=== PATIENT | male | born 1990 | race African-American/Black ===

== ENCOUNTER 2016-11-30 08:53 | Emergency (ER) | payer SELFPAY ==
[~2016-11-30] VITALS: Ht 182.9 cm; Wt 90.0 kg
[~2016-11-30 08:53] MED LIST: NAPR-576 PO; ULTR50TA PO
[2016-11-30 08:55] VITALS: BP 159/82; PULSE 106; RESP 16; TEMP 98.8; O2SAT 100
[2016-11-30] MEDS ORDERED: IBUPROFEN 800 MG TAB PO ONE (09:30)
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
--- NOTE | 2016-11-30 10:24 | RADRPT ---
EXAM DATE/TIME: 11/30/2016 10:15 [facility] COMPARISON: No previous studies available for comparison. INDICATIONS : Right ankle pain with swelling MEDICAL HISTORY : None. SURGICAL HISTORY : None. ENCOUNTER: Initial ACUITY: 1 day PAIN SCORE: 9/10 LOCATION: Right ankle FINDINGS: There is soft tissue swelling without fracture or dislocation. CONCLUSION: Soft tissue swelling without fracture. Sharad Shah MD FACR on November 30, 2016 at 10:21 Board Certified Radiologist. This report was verified electronically.
--- NOTE | 2016-11-30 10:29 | RADRPT ---
EXAM DATE/TIME: 11/30/2016 10:17 [facility] COMPARISON: No previous studies available for comparison. INDICATIONS : Right foot pain MEDICAL HISTORY : None. SURGICAL HISTORY : None. ENCOUNTER: Initial ACUITY: 1 day PAIN SCORE: 8/10 LOCATION: Right foot FINDINGS: Three view examination of the right foot demonstrates no soft tissue swelling, dislocation, or fractu re. The tarsal bones appear intact. The interphalangeal and metatarsophalangeal joints are intact. The calcaneus is intact. Bony mineralization is normal. CONCLUSION: No acute disease. Issa Myles MD on November 30, 2016 at 10:26 Board Certified Radiologist. This report was verified electronically.
[2016-11-30] MEDS ORDERED: IBUP800T23 PO (10:43)
== END 2016-11-30 11:54 | disposition home or self-care (01) ==
LOC: NETRI 08:53
DX: S90.31XA Contusion of right foot, initial encounter (principal); S93.401A Sprain of unspecified ligament of right ankle, initial encounter; Y93.9 Activity, unspecified; Y92.9 Unspecified place or not applicable; Y99.9 Unspecified external cause status; V86.59XA Driver of other special all-terrain or other off-road motor vehicle injured in nontraffic accident, initial encounter
CPT/HCPCS: 73610; 73630; 99283; L1906

== ENCOUNTER 2018-01-13 12:19 | Emergency (ER) | payer OTHER ==
[~2018-01-13] VITALS: Ht 185.4 cm; Wt 93.0 kg
[~2018-01-13 12:19] MED LIST changes: +IBUP1TAB7 PO; -NAPR-576 PO; -ULTR50TA PO
[2018-01-13 12:20] VITALS: BP 138/86; PULSE 81; TEMP 98.3; O2SAT 98
[2018-01-13] MEDS ORDERED: ACETAMINOPHEN/HYDROcodone 325 MG/5 MG TAB PO ONE (13:15)
[2018-01-13] MEDS ORDERED: CEPH-460 PO (13:18)
--- NOTE | 2018-01-13 13:18 | PD ---
HPI Chief Complaint: Laceration/Skin Injury Time Seen by Provider: 12:28 Travel History International Travel<30 days: No Contact w/Intl Traveler<30days: No Traveled to known affect area: No History of Present Illness HPI 27-year-old male presents emergency department evaluation of a laceration to his left hand after trying to open a package today. Patient states that he was trying to open a package when he was using a sharp knife actually slipped and cut the dorsal aspect of the web between his first and second finger. He denies any numbness tingling. Says that the pain is mild in severity. Nonradiating. Aching. Says his last tetanus vaccination was 1 year ago. He has no other complaints today. PFS Past Medical History Medical History: Denies Significant Hx Arthritis: No Asthma: No Autoimmune Disease: No Anxiety: No Depression: No Heart Rhythm Problems: No Cancer: No Cardiovascular Problems: No High Cholesterol: No Chemotherapy: No Chest Pain: No Congestive Heart Failure: No COPD: No Cerebrovascular Accident: No Diabetes: No Diminished Hearing: No Endocrine: No GERD: No Hiatal Hernia: No Immune Disorder: No Kidney Stones: No Musculoskeletal: No Neurologic: No Psychiatric: No Reproductive: No Respiratory: No Immunizations Current: Yes Migraines: No Radiation Therapy: No Renal Failure: No Seizures: No Sickle Cell Disease: No Sleep Apnea: No Thyroid Disease: No Ulcer: No Tetanus Vaccination: Unknown ?: Not Past Surgical History Surgical History: No Previous Surgery Abdominal Surgery: No AICD: No Arteriovenous Shunt: No Cardiac Surgery: No Ear Surgery: No Endocrine Surgery: No Genitourinary Surgery: No Gynecologic Surgery: No Insulin Pump: No Joint Replacement: No Neurologic Surgery: No Oral Surgery: No Pacemaker: No Thoracic Surgery: No Other Surgery: No Social History Alcohol Use: Yes (OCC) Tobacco Use: No Substance Use: No Allergies-Medications (Allergen,Severity, Reaction): Coded Allergies: No Known Allergies (Unverified Adverse Reaction, Unknown, 01/13/18) Reported Meds & Prescriptions Reported Meds & Active Scripts Active Keflex (Cephalexin) 500 Mg Cap 500 Mg PO Q8H 5 Days Review of Systems Except as stated in HPI: all other systems reviewed are Neg Physical Exam Narrative GENERAL: Well-nourished, well-developed patient. SKIN: Focused skin assessment warm/dry. Left hand dorsal aspect between the thumb and index finger-laceration 1/2 cm, possible superficial muscular involvement HEAD: Normocephalic. EYES: No scleral icterus. No injection or drainage. NECK: Supple, trachea midline. No JVD or lymphadenopathy. CARDIOVASCULAR: Regular rate and rhythm without murmurs, gallops, or rubs. RESPIRATORY: Breath sounds equal bilaterally. No accessory muscle use. GASTROINTESTINAL: Abdomen soft, non-tender, nondistended. MUSCULOSKELETAL: No cyanosis, or edema. Grade 5/5 upper extremities. No neuro deficits BACK: Nontender without obvious deformity. No CVA tenderness. Data Data Last Documented VS Vital Signs Date Time Temp Pulse Resp B/P (MAP) Pulse Ox O2 Delivery O2 Flow Rate FiO2 01/13/18 12:20 98.3 81 138/86 (103) 98 Orders Orders Acetamin-Hydrocod 325-5 Mg ([facility] 5-325 (01/13/18 13:15) Wound Care (01/13/18 13:14) Ed Discharge Order (01/13/18 13:20) MDM Medical Decision Making Medical Screen Exam Complete: Yes Emergency Medical Condition: Yes Differential Diagnosis Left hand laceration, left hand avulsion, left hand abrasion Narrative Course 27-year-old male presents emergency department for evaluation of laceration left hand that occurred while trying to cut open a package today. Patient is neurovascularly intact. No evidence of bony or tendon involvement. Possible superficial laceration to the musculature. Laceration repair performed. Placed 1 Vicryl suture and 6 Ethilon. Wound care advised. Patient be placed on Keflex for prophylaxis. Administered hydrocodone for pain while emergency department today. Advised to use Tylenol or Motrin per package instructions for outpatient pain control. Patient to follow-up regarding suture removal in 7-10 days. Return to emergency department worsening or persistent symptoms. Procedures Procedure Narrative LACERATION LOCATION: Left dorsal hand LENGTH: 1/2 cm NUMBER OF STITCHES/MERCEDES: 7 REPAIR: The area of the laceration was prepped with Betadine and sterilely draped. The laceration was infiltrated with 2% lidocaine without epinephrine. The wound was copiously irrigated and explored without evidence of foreign body, tendon injury or neurovascular injury. The wound was closed using 6 5-0 Ethilon, 1 6-0 Vicryl. This was a 2 layer repair. A sterile dressing was applied. The patient was advised to keep the dressing clean and dry. Patient tolerated the procedure well. Diagnosis Primary Impression: Hand laceration Qualified Codes: S61.412A - Laceration without foreign body of left hand, initial encounter Referrals: Primary Care Physician Departure Forms: Tests/Procedures, Work Release Enter return to work date: Jan 15, 2018 Special Instructions: Light duty for 7-10 days. Avoid excessive use of the left hand until wound is healed. Additional Instructions: Follow up with your primary care physician within 2-3 days. Keep area clean and dry for 24 hours. After 24 hours, you may bathe as normal but dry the area thoroughly. You may use [id number] triple antibiotic ointments for your injury daily. Change dressings daily. If bleeding starts, apply pressure and elevate the area. He may apply ice to reduce the swelling. If you developed increased redness, swelling, or pain return to the emergency department as this could be a sign of infection. Scripts Cephalexin (Keflex) 500 Mg Cap 500 MG PO Q8H for Infection for 5 Days, #15 CAP 0 Refills Prov: Nicolas Bailey MD 01/13/18 Disposition: 01 DISCHARGE HOME Condition: Stable Christina Cancino Jan 13, 2018 13:18
== END 2018-01-13 13:44 | disposition home or self-care (01) ==
LOC: NEPC 12:19
DX: S61.412A Laceration without foreign body of left hand, initial encounter (principal); W26.0XXA Contact with knife, initial encounter; Y93.89 Activity, other specified
CPT/HCPCS: 12041